=== PATIENT | female | born 1990 | race Caucasian/White ===

== ENCOUNTER 2021-04-22 11:04 | Emergency (ER) | payer OTHER, MEDICAID ==
[~2021-04-22] VITALS: Ht 154.9 cm; Wt 68.0 kg
[~2021-04-22 11:04] MED LIST: LEVO125T PO
[2021-04-22 11:05] VITALS: BP_SYST 127
[2021-04-22 12:16] LABS: BASOPHILS # (AUTO) 0.1 K/uL (0.0-0.2); BASOPHILS % (AUTO) 1.1 % (0.0-2.0); EOSINOPHILS # (AUTO) 0.2 K/uL (0.0-0.4); EOSINOPHILS % (AUTO) 3.8 % (0.0-4.0); HEMATOCRIT 39.9 % (36-48); HEMOGLOBIN 13.6 g/dL (12.0-16.0); LYMPHOCYTES # (AUTO) 2.6 K/uL (1.0-5.5); LYMPHOCYTES % (AUTO) 45.7 % (20.5-51.5); MEAN CORPUSCULAR HEMOGLOBIN 31 pg (27-31); MEAN CORPUSCULAR HGB CONC 34 % (32-36); MEAN CORPUSCULAR VOLUME 89 fL (79.0-98.0); MONOCYTES # (AUTO) 0.4 K/uL (0.0-1.0); MONOCYTES % (AUTO) 6.6 % (1.7-9.3); NEUTROPHILS # (AUTO) 2.4 K/uL (1.8-7.7); NEUTROPHILS % (AUTO) 42.8 % (40.0-70.0); PLATELET COUNT (AUTO) 166 K/uL (130-430); RED BLOOD CELL COUNT(AUTO) 4.47 MIL/uL (4.2-6.2); RED CELL DISTRIBUTION WIDTH 12.7 % (9.0-15.0); WHITE BLOOD COUNT (AUTO) 5.6 K/uL (4.8-10.8)
[2021-04-22 12:31] LABS: CALCIUM 8.7 mg/dL (8.4-11.0); CREATININE 0.61 mg/dL (0.55-1.30)
[2021-04-22 12:36] LABS: ALBUMIN 3.9 g/dL (3.4-4.8); C-REACTIVE PROTEIN QUANT 0.3 mg/dL (0-0.5); TOTAL BILIRUBIN 0.4 mg/dL (0.0-1.0)
[2021-04-22 12:45] LABS: BILIRUBIN,URINE NEGATIVE (NEGATIVE); BLOOD, URINE NEGATIVE (NEGATIVE); COLOR,URINE YELLOW (YELLOW); GLUCOSE,URINE NEGATIVE (NEGATIVE); KETONES,URINE NEGATIVE (NEGATIVE); LEUKOCYTE ESTERASE ,URINE NEGATIVE (NEGATIVE); NITRITE, URINE NEGATIVE (NEGATIVE); PH,URINE 6.5 (5.0-8.0); PROTEIN URINE NEGATIVE (NEGATIVE); UROBILINOGEN,URINE 0.2 (0.2-1.0)
[2021-04-22 12:47] LABS: CLARITY/URINE CLEAR (CLEAR)
[2021-04-22 12:55] LABS: ERYTHROCYTE SEDIMENTATION RATE 8 MM/HR (0-20)
[2021-04-22 13:21] VITALS: BP_SYST 127
== END 2021-04-22 13:21 | disposition home or self-care (01) ==
LOC: SED 11:04 → MERGE 11:04 → SED 13:21
DX: K12.1 Other forms of stomatitis (principal); Z91.040 Latex allergy status; Z79.899 Other long term (current) drug therapy
CPT/HCPCS: 36415; 80053; 81003; 81025; 85025; 85651-TC; 86140; 87040-TC; 99283